=== PATIENT | male | born 1980 | race Caucasian/White ===

== ENCOUNTER → 2019-03-05 | Outpatient (CLI) | payer OTHER ==
[~2019-03-05] MED LIST: BC F1POW2 PO; ISOVUE-M 300 61% 15ML VIAL (Q9967) As Ordered ONE; LIDOCAINE 1% MDV 20ML VIAL As Ordered ONE; PERC5TAB12 PO
--- NOTE | 2019-03-05 11:29 | REP ---
CT LUMBAR SPINE WITHOUT CONTRAST: HISTORY: Lumbar radiculopathy. CT of the lumbar spine was performed status post myelography. There is no disc bulge or herniation at the L1-2 level. The L1 nerves exit the neural foramina without compression. A diffuse disc bugle is present at the L2-3 level. There is minimal compression of the thecal sac. The L2 nerves exit the neural foramina without compression. A diffuse disc bulge is present at the L3-4 level. There is minimal compression of the thecal sac. The L3 nerves exit the neural foramina without compression. A diffuse disc bulge is present at the L4-5 level. There is minimal compression of the thecal sac. There is hypertrophy of the ligamenta flava. The L4 nerves exit the neural foramina without compression. A diffuse disc bulge is present at the L5-S1 level. There is minimal compression of the thecal sac. There is hypertrophy of the posterior articulating facets. The L5 nerves exit the neural foramina without compression. The conus medullaris terminates at the level of the L1-2 intervertebral disc. The L4-5 and L5-S1 intervertebral discs are decreased in height consistent with disc degeneration. There is no subluxation. IMPRESSION: Diffuse disc bulges at the L2-3 through L5-S1 levels with minimal thecal sac compression. Electronically Signed by Miah Fernandes MD 03/05/2019 11:43 A
--- NOTE | 2019-03-06 09:37 | REP ---
LUMBAR MYELOGRAM The procedure was performed under the personal supervision of Dr. Fernandes The risks and benefits of the procedure were explained to the patient and informed consent was obtained. The L3-4 interspace was localized using fluoroscopic guidance. The skin was prepped and draped in a sterile fashion. 1% lidocaine was used as a local anesthetic. Using fluoroscopic guidance a 22-gauge spinal needle was inserted and advanced into the thecal sac. 9 ml of Isovue - M 300 was injected. The needle was removed and the patient has taken to CT scan for postprocedural imaging. The patient tolerated the procedure well and there were no immediate complications. After the appropriate amount of monitored convalescence the patient was discharged from the department. 0.1 minutes of fluoroscopy time was utilized for this procedure. Reviewed by ARIANA Baker 03/05/2019 05:31 P Electronically Signed by Miah Fernandes MD 03/06/2019 09:28 A
== END ==
LOC: M RADPRO 08:02
PROVIDERS: ATTEND Orthopaedic Surgery
DX: M54.16 Radiculopathy, lumbar region (principal); M51.27 Other intervertebral disc displacement, lumbosacral region; M51.36 Other intervertebral disc degeneration, lumbar region
CPT/HCPCS: 62304; 72131; Q9967

== ENCOUNTER 2019-03-08 12:59 | Emergency (ER) | payer OTHER ==
[~2019-03-08] VITALS: Ht 180.3 cm; Wt 104.5 kg
[2019-03-08] MEDS ORDERED: BC F1POW2 PO (13:09)
[2019-03-08] MEDS ORDERED: PERC5TAB12 PO (14:39)
[2019-03-08 14:41] VITALS: BP 147/70
[2019-03-08] MEDS ORDERED: PERCOCET 5MG/325MG TAB PO ONE (14:45)
== END 2019-03-08 14:54 | disposition home or self-care (01) ==
LOC: M ED 12:59
DX: R51 Headache (principal); T88.59XA Other complications of anesthesia, initial encounter; X58.XXXA Exposure to other specified factors, initial encounter; Y92.89 Other specified places as the place of occurrence of the external cause

== ENCOUNTER 2019-03-10 16:18 | Emergency (ER) | payer OTHER ==
[~2019-03-10] VITALS: Ht 180.3 cm; Wt 104.2 kg
[2019-03-10 16:18] VITALS: BP 126/73
[~2019-03-10 16:18] MED LIST changes: -ISOVUE-M 300 61% 15ML VIAL (Q9967) As Ordered ONE; -LIDOCAINE 1% MDV 20ML VIAL As Ordered ONE
== END 2019-03-10 18:18 | disposition home or self-care (01) ==
LOC: M ED 16:18
DX: G97.1 Other reaction to spinal and lumbar puncture (principal); M54.9 Dorsalgia, unspecified; Z79.82 Long term (current) use of aspirin